=== PATIENT | male | born 1990 | race Caucasian/White ===

== ENCOUNTER 2017-09-13 08:54 | Emergency (ER) | payer OTHER, BC ==
[2017-09-13 09:09] VITALS: BP 119/70
[2017-09-13] MEDS: Bacitracin/Neomycin/Polymyxin B Oint 0.9 GM U/D Packet TOP ONE (09:40)
--- NOTE | 2017-09-13 09:41 | EDM.PDOC ---
ED HPI GENERAL MEDICAL PROBLEM - General Chief Complaint: Upper Extremity Injury/Pain Stated Complaint: Sawzall Blade puncture to L) arm Time Seen by Provider: 09/13/17 09:33 Source of Information: Reports: Patient History Limitations: Reports: No Limitations - History of Present Illness INITIAL COMMENTS - FREE TEXT/NARRATIVE: Patrick is a 26 year old male who presents to the ED with c/o a puncture wound to his left forearm. He reports he was at work and a sawzall blade accidently slipped and puntured into his left forearm. He reports bleeding is controlled. Denies any numbness and tingling. Able to move extremity without difficulty. Does have some slight swelling to area. 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: Other (see below) (Neosporin) Left Arm Pain Score (Numeric/FACES): 6 - Related Data Allergies Allergy/AdvReac Type Severity Reaction Status Date / Time No Known Allergies Allergy Verified 09/13/17 09:09 Home Meds: Home Meds Omeprazole 20 mg PO DAILY 12/01/15 [History] Past Medical History Gastrointestinal History: Reports: GERD - Infectious Disease History Infectious Disease History: Reports: Meningitis Other Infectious Disease History: viral meningitis age 13 Social & Family History - Family History Family Medical History: Noncontributory - Tobacco Use Smoking Status *Q: Never Smoker - Recreational Drug Use Recreational Drug Use: No Review of Systems - Review of Systems Review Of Systems: ROS reveals no pertinent complaints other than HPI. ED EXAM, GENERAL - Physical Exam Exam: See Below Exam Limited By: No Limitations General Appearance: Alert, WD/WN, No Apparent Distress Peripheral Pulses: 2+: Radial (L) Extremities: Normal Range of Motion, Normal Capillary Refill, Arm Pain, Other ( 1 cm puncture wound to left forearm). No: Increased Warmth, Redness Skin Exam: Warm, Dry, Normal Color, No Rash, Wound/Incision (1 cm puncture wound to left forearm, no bleeding) Course - Vital Signs Last Recorded V/S: Last Vital Signs Temp 96.8 F 09/13/17 09:00 Pulse 57 L 09/13/17 09:00 Resp 20 09/13/17 09:00 BP 119/70 09/13/17 09:00 Pulse Ox 97 09/13/17 09:00 - Orders/Labs/Meds Meds: Medications Discontinued Medications Generic Name Dose Route Start Last Admin Trade Name Joel PRN Reason Stop Dose Admin Neomycin/Polymyxin/Bacitracin 1 each 09/13/17 09:36 09/13/17 09:40 Triple Antibiotic Oint TOP 09/13/17 09:37 1 each ONETIME ONE Administration - Re-Assessments/Exams Free Text/Narrative Re-Assessment/Exam: No active bleeding from puncture wound. Wound is superficial and requires no sutures etc. MAXWELL applied and wound covered with bandaid. Departure - Departure Time of Disposition: 09:39 Disposition: Home, Self-Care 01 Condition: Good Clinical Impression: Puncture wound of left upper arm Qualifiers: Encounter type: initial encounter Qualified Code(s): S41.132A - Puncture wound without foreign body of left upper arm, initial encounter - Discharge Information Instructions: Puncture Wound, [id number] Referrals: Mamadou Huntley MD [Primary Care Provider] - Forms: ED Department Discharge Additional Instructions: Monitor site for signs of infection (redness, increased warmth, foul smelling drainage) Tylenol or ibuprofen as needed for pain Ice affected area Follow up as needed
== END 2017-09-13 09:45 | disposition home or self-care (01) ==
LOC: CC.ED 08:54
DX: S51.832A Puncture wound without foreign body of left forearm, initial encounter (principal); K21.9 Gastro-esophageal reflux disease without esophagitis; Y99.0 Civilian activity done for income or pay; W26.8XXA Contact with other sharp object(s), not elsewhere classified, initial encounter; Z79.899 Other long term (current) drug therapy
CPT/HCPCS: 99282

== ENCOUNTER 2019-01-08 21:34 | Emergency (ER) | payer BC ==
[2019-01-08] MEDS ORDERED: Acetaminophen/HYDROcodone 325-5 MG Tab PO ONE ×2 (21:35→22:26)
[2019-01-08 21:36] VITALS: BP 138/80; PULSE 80
[2019-01-08] MEDS ORDERED: Bacitracin/Neomycin/Polymyxin B Oint 28.4 GM Tube ONE (22:00)
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
[2019-01-08] MEDS ORDERED: Acetaminophen/HYDROcodone 325-5 MG Tab ONE (22:10)
[2019-01-08] MEDS ORDERED: Take Home: Acetaminophen/HYDROcodone 325-5 MG, 2 Tab Pack PO ONE (22:26)
== END 2019-01-08 22:34 | disposition home or self-care (01) ==
LOC: CC.ED 21:34
DX: T23.241A Burn of second degree of multiple right fingers (nail), including thumb, initial encounter (principal); K21.9 Gastro-esophageal reflux disease without esophagitis; Z79.899 Other long term (current) drug therapy; X16.XXXA Contact with hot heating appliances, radiators and pipes, initial encounter
CPT/HCPCS: 99282; A9270

== ENCOUNTER 2021-09-11 23:20 | Emergency (ER) | payer BC, OTHER ==
[2021-09-11] MEDS ORDERED: Sodium Chloride 0.9% 10 ML Syringe FLUSH PRN (23:32)
[2021-09-11] MEDS: Ondansetron 4 MG/2 ML SDV IVPUSH STA (23:48)
[2021-09-11] MEDS: Sodium Chloride 0.9% 1,000 ML IV ONE (23:49)
[2021-09-11 23:52] LABS: CHLORIDE,CL 103 mEq/L (98-106); SODIUM,NA 141 mEq/L (136-145)
[2021-09-12 00:29] VITALS: BP 137/102; PULSE 93
[2021-09-12] MEDS: Ondansetron 4 MG/2 ML SDV IVPUSH ONE (00:38)
[2021-09-12] MEDS: Take Home: Ondansetron 4 MG Tab.DIS, 2 Tab Pack PO ONE (00:45)
== END 2021-09-12 01:00 | disposition home or self-care (01) ==
LOC: CC.ED 23:20
DX: A08.4 Viral intestinal infection, unspecified (principal); R11.2 Nausea with vomiting, unspecified; Z28.310 Unvaccinated for COVID-19; Z20.822 Contact with and (suspected) exposure to COVID-19
CPT/HCPCS: 36415; 80053; 82150; 83690; 85025; 96361; 96374; 96376; 99284; 99284-25; A9270-GY; J2405; J7030; U0002

== ENCOUNTER 2022-03-14 18:34 | Emergency (ER) | payer SELFPAY ==
[2022-03-14 18:38] VITALS: BP 142/78; PULSE 97
[2022-03-14] MEDS ORDERED: Ondansetron 4 MG/2 ML SDV IVPUSH ONE (18:41)
[2022-03-14] MEDS ORDERED: Sodium Chloride 0.9% 1,000 ML IV ONE (18:41)
[2022-03-14] MEDS ORDERED: Sodium Chloride 0.9% 10 ML Syringe FLUSH PRN (18:41)
[2022-03-14] MEDS ORDERED: Promethazine 12.5 MG in Sodium Chloride 0.9% 100 ML IV ONE (19:24)
[2022-03-14] MEDS ORDERED: Take Home: Ondansetron 4 MG Tab.DIS, 2 Tab Pack PO ONE (19:26)
== END 2022-03-14 20:50 | disposition home or self-care (01) ==
LOC: CC.ED 18:34
DX: A08.4 Viral intestinal infection, unspecified (principal)
CPT/HCPCS: 36415; 80053; 82150; 83690; 85025; 96361; 96374; 96375; 99283; 99284-25; A9270-GY; J2405; J2550; J7030